=== PATIENT | male | born 1950 | race Caucasian/White ===

== ENCOUNTER 2024-04-21 08:48 | Emergency (ER) | payer MEDICARE, SELFPAY ==
[2024-04-21 08:56] VITALS: BP 150/87; PULSE 55; RESP 20; TEMP 36.1; O2SAT 97; BMI 44.6
--- NOTE | 2024-04-21 09:01 | ED_ITS ---
HPI - General Adult General Time Seen by Provider: 09:01 Date Seen: 04/21/24 Chief complaint: Rib Pain Stated complaint: fell, left side rib pain Time Seen by Provider: 04/21/24 08:52 Source: patient and RN notes reviewed Mode of arrival: ambulatory Limitations: no limitations History of Present Illness HPI narrative: This 73-year-old male is ambulatory into the ED of his own accord with complaint of left rib pain after a fall. He was in [facility] at a trade show in tripped on Tuesday. There was a small on even part of the ground, small lip that he miss in simply tripped. He fell with his left arm/elbow underneath him along the chest wall. He had chest wall pain and has had chest wall pain since then. He was taking Tylenol to try to get through until he got home. Last night he tried some ibuprofen. He states he cannot sleep. There is significant pain with deep breathing, coughing, sneezing, movement. No shortness of breath. Nothing else was injured. He has taken narcotics in the past for surgery, does not remember exactly what but has had no issues historically with these that he can remember. He takes a baby aspirin daily but otherwise is not on any blood thinner. Related Data Home Medications ?Medication ?Instructions ?Recorded ?Confirmed aspirin 81 mg chewable tablet 81 mg PO DAILY 04/21/24 04/21/24 (Aspirin Childrens) Previous Rx's ?Medication ?Instructions ?Recorded oxycodone 5 mg tablet 5 mg PO QHS PRN pain #10 tabs 04/21/24 Allergies Allergy/AdvReac Type Severity Reaction Status Date / Time No Known Drug Allergies Allergy Verified 04/21/24 09:00 Review of Systems Status of ROS: Reports: 6 or more systems reviewed and unremarkable except as noted in History and below Exam Const: Vital Signs, click to edit/add: Vital Signs - 24 hr 04/21/24 08:56 Temperature 97 F L Pulse Rate [Pulse Oximeter] 55 L Respiratory Rate 20 Blood Pressure [Ri ght Upper Arm] 150/87 H Pulse Oximetry 97 Oxygen Delivery Me thod Room Air Joshua is a 73-year-old male that is alert, interactive, no apparent distress. He has normal gait, walks in easily into the ER, was visualized. Pupils equal round reactive, sclera clear, symmetrical facial function, face atraumatic. Is able to sit up, lungs are clear, good air entry, no wheezing or crackles. He has no visible ecchymosis of his chest wall. He is tender along the left lateral lower chest wall in the anterior angle of the ribs but there is no step- off or crepitus. CV is at times irregular, here pauses but no murmur. Normal S1-S2. Do think he probably is having PACs or PVCs but reviewed with him we will get an EKG to confirm his rhythm. Abdomen is obese but soft, no organomegaly, not tender at all in the left upper quadrant, no tenderness in his abdomen. Do not feel any masses organomegaly but this could be confounded on examination by body habitus. Documenting provider has reviewed patient's vital signs: yes Course Course ED Course: We will obtain x-rays with left rib views to see if there is any underlying rib fractures. Patient is hemodynamically stable, do not think we need advanced imaging at this time. Will get an EKG due to the irregularity of his she pulse on auscultation. Reevaluation(s) Time of Reevaluation #1: 09:34 Reevaluation #1: Reviewed with patient that his EKG showing premature ventricular complexes. His chest x-ray does show a 7th rib fracture but no other concerning findings. Reviewed pain management, went over risks/benefits/side effects/contraindications with narcotics. Patient at this time states he is just going to try to use the pain pill for sleep. Did also review splinting technique. Reviewed need to try a to take deeper breaths slowly to help aeration in the lungs, went over signs and symptoms of pneumonia. Vital Signs Vital signs: Initial Vital Signs Temperature 97 F L 04/21/24 08:56 Temperature Source Temporal Artery Scan 04/21/24 08:56 Pulse Rate 55 L 04/21/24 08:56 Pulse Rhythm Regular 04/21/24 08:56 Respiratory Rate 20 04/21/24 08:56 Blood Pressure 150/87 H 04/21/24 08:56 Blood Pressure Mean 108 H 04/21/24 08:56 Pulse Oximetry 97 04/21/24 08:56 Oxygen Delivery Method Room Air 04/21/24 08:56 Vital Signs Temperature 97 F L 04/21/24 08:56 Pulse Rate 55 L 04/21/24 08:56 Respiratory Rate 20 04/21/24 08:56 Blood Pressure 150/87 H 04/21/24 08:56 Pulse Oximetry 97 04/21/24 08:56 Oxygen Delivery Method Room Air 04/21/24 08:56 Temperature 97 F L 04/21/24 08:56 Pulse Rate 55 L 04/21/24 08:56 Respiratory Rate 20 04/21/24 08:56 Blood Pressure 150/87 H 04/21/24 08:56 Pulse Oximetry 97 04/21/24 08:56 Oxygen Delivery Method Room Air 04/21/24 08:56 Medical Decision Making Imaging Data Chest x-ray: Attestation: I have reviewed the pertinent imaging results. My impression: Do see a distal rib fracture, no pneumothorax. Await Radiology over-read. Radiologist's impression: Patient: [facility] Facility:?[facility] Patient ID:?[id number] Site Patient ID:?[id number]. Site :?[id number] Study:?XRay-Chest RIBS 2 VIEW W/ 1V CXR-04/21/2024 9:23:47 AM Ordering Physician:Ruben Quijano Final Report: INDICATION: Fall, left rib pain. TECHNIQUE: PA chest and 2 views of the left ribs. FINDINGS: Acute appearing fracture of the anterior left 7th rib. No pneumothorax. Minimal linear scarring in the left mid lung. Lungs otherwise clear. Sternotomy. Dictated by Jeffery Youngblood MD @ 04/21/2024 9:26:39 AM (Electronic Signature) ECG Data Attestation: I personally reviewed and interpreted this ECG as follows: (Two EKGs done, 1 capturing bigeminy, 2nd with solitary PVC.) Prior ECG tracings: not available for review Discharge Plan Discharge Clinical Impression: Asymptomatic premature ventricular contractions Fall Qualifiers: Encounter type: initial encounter Qualified Code(s): W19.XXXA - Unspecified fall, initial encounter Left rib fracture Qualifiers: Encounter type: initial encounter Rib fracture type: single rib Fracture type: closed Qualified Code(s): S22.32XA - Fracture of one rib, left side, initial encounter for closed fracture Patient Disposition: Home, Self-Care Condition: Stable Instructions: Rib Fracture (ED), Fall Prevention for Older Adults (ED), Premature Ventricular Contractions (ED) Additional Instructions: Use splinting technique to help minimize pain with movement, coughing or sneezing. Tylenol 1000 mg 3 times a day scheduled for baseline pain management. Can use the oxycodone at bedtime to help you sleep or if severe pain during the day. Oxycodone is a narcotic, cannot drive or operate machinery while on this. May need to use MiraLax and or senna while on oxycodone to prevent narcotic induced constipation. If you are not improving over the next few weeks, developed cough, fever, shortness of breath at any point, do recommend re- evaluation. This may take a full 6-8 weeks for full recovery but should see slow but steady improvement. Activity Level: Activity as Tolerated Prescriptions: New oxycodone 5 mg tablet 5 mg PO QHS PRN (Reason: pain) Qty: 10 0RF No Action aspirin [Aspirin Childrens] 81 mg tablet,chewable 81 mg PO DAILY Stand Alone [facility]: [facility] Info Instructions
--- NOTE | 2024-04-21 09:05 | CRLHL7_ITS ---
For Patients: As a result of the Cures Act, medical imaging exams and procedure reports are released immediately into your electronic medical record. You may view this report before your referring provider. If you have questions, please contact your health care provider. INDICATION: Fall, left rib pain. TECHNIQUE: PA chest and 2 views of the left ribs. FINDINGS: Acute appearing fracture of the anterior left 7th rib. No pneumothorax. Minimal linear scarring in the left mid lung. Lungs otherwise clear. Sternotomy. Dictated by Jeffery Youngblood MD @ 04/21/2024 9:26:39 AM (Electronically Signed)
== END 2024-04-21 10:02 | disposition home or self-care (01) ==
PROVIDERS: Emergency Provider Family Medicine; PCP Family Medicine
DX: S22.32XA Fracture of one rib, left side, initial encounter for closed fracture (principal); I49.3 Ventricular premature depolarization; W01.0XXA Fall on same level from slipping, tripping and stumbling without subsequent striking against object, initial encounter
CPT/HCPCS: 71101; 93005; 99283; 99284